=== PATIENT | female | born 1940 | race Caucasian/White ===

== ENCOUNTER 2022-03-21 10:30 | Emergency (ER) | payer MEDICARE, BC ==
[~2022-03-21] VITALS: Ht 152.4 cm; Wt 47.2 kg
--- NOTE | 2022-03-21 11:00 | NUR ---
PT IS IN ROOM #1A. DR ARANGO EVALUATED THE PT.
[2022-03-21 11:08] LABS: CARBON DIOXIDE 29 mmol/L (21-32); CHLORIDE 103 mmol/L (98-107); CREATININE 0.7 mg/dL (0.6-1.3); GLUCOSE 105 mg/dL (74-106); POTASSIUM 4.4 mmol/L (3.5-5.1); UREA NITROGEN, BLOOD 18 mg/dL (7-18)
[2022-03-21 11:17] LABS: ALANINE AMINOTRANSFERASE 17 U/L (14-59); ALKALINE PHOSPHATASE 53 U/L (50-136); ASPARTATE AMINOTRANSFERASE 16 U/L (15-37); BILIRUBIN,DIRECT 0.2 mg/dL (0.0-0.2); BILIRUBIN,TOTAL 0.8 mg/dL (0.2-1.0); LIPASE 100 U/L (73-393); TOTAL PROTEIN, SERUM 6.3 g/dL (6.4-8.2)
[2022-03-21 11:25] LABS: HEMATOCRIT 41.4 % (31.2-41.9); MEAN CORPUSCULAR HEMOGLOBIN 33.9 uug (24.7-32.8); MEAN CORPUSCULAR VOLUME 98.4 fL (75.5-95.3); PLATELET COUNT (AUTO) 296 K/uL (179-408)
[2022-03-21 11:26] LABS: NEUTROPHILS % (MANUAL) 0 % (42-75)
[2022-03-21] MEDS ORDERED: IV NORMAL SALINE 250 ML IV ONE (11:53)
[2022-03-21] MEDS ORDERED: IOHEXOL 350 100 ML INFUS..BTL ONE (11:53)
[2022-03-21] MEDS ORDERED: SWABABLE VALVE TRANSFER SET EA MC ONE (11:53)
[2022-03-21] MEDS ORDERED: IV NS 1000 ML 1,000 ML IV ONE (13:00)
--- NOTE | 2022-03-21 13:41 | NUR ---
OF DR ARANGO INSTRUCTIONS..PT DECIDED TO LEAVE HOSPITAL AMA. DR ARANGO EXPLAINED ALL RISKS OF LEAVING HOSPITAL AMA TO THE PT AND TO HER . THEY VERBALISED FULL UNDERSTANDING OF DR ARANGO EXPLANATIONS. PT SIGNED AMA FORM AND LEFT HOSPITAL WITH HER BY TAXI. NO S/S OF DISTRESS WAS PRESENT AT THE TIME OF DISCHARGE.
[2022-03-21] MEDS ORDERED: PRED5DRO16 EACHEYE (14:08)
[2022-03-21] MEDS ORDERED: FLUO40CA49 MT (14:08)
[2022-03-21] MEDS ORDERED: PROC10TA29 MT (14:08)
[2022-03-21] MEDS ORDERED: LEVO25TA9 MT (14:08)
[2022-03-21] MEDS ORDERED: LORA0.5T48 PO (14:08)
[2022-03-21] MEDS ORDERED: OXYC-128 PO (14:08)
[2022-03-21] MEDS ORDERED: PREG25CA19 MT (14:08)
[2022-03-21] MEDS ORDERED: ONDA4TAB11 MT (14:08)
[2022-03-21] MEDS ORDERED: GABA-532 PO (14:08)
[2022-03-21] MEDS ORDERED: ATOR80TA (14:08)
[2022-03-21 14:24] VITALS: BP 138/89
== END 2022-03-21 14:24 | disposition left against medical advice (07) ==
LOC: ER 10:30
DX: K56.600 Partial intestinal obstruction, unspecified as to cause (principal); I25.2 Old myocardial infarction; Z91.040 Latex allergy status; Z79.899 Other long term (current) drug therapy
CPT/HCPCS: 36415; 71045; 71275; 74174; 74176; 80048; 80076; 83605; 83690; 84484 ×2; 85007; 85025; 85379; 85730; 93005; 96360; 99285; J7040; Q9967; 70030-TC; A4663